=== PATIENT | male | born 1950 | race Two or more races ===

== ENCOUNTER 2019-01-05 06:06 | Day surgery (SDC) | payer OTHER ==
[~2019-01-05 06:06] MED LIST: CARDURA1 MG PO; CARTIA XT240 MG PO; CRESTOR5 MG PO; PROTONIX PO; SYNTROID PO; TOPROL XL50 MG PO; ZETIA10 MG PO
== END 2019-01-05 12:30 | disposition home or self-care (01) ==
LOC: CIR.AMB 06:06
DX: N43.2 Other hydrocele (principal); N43.41 Spermatocele of epididymis, single

== ENCOUNTER 2024-10-27 16:58 | Outpatient (CLI) | payer OTHER | END 2024-10-27 17:02 | disposition home or self-care (01) | LOC: LAB 16:58 | PROVIDERS: ATTEND Urology | DX: R97.20 Elevated prostate specific antigen [PSA] (principal) ==